=== PATIENT | male | born 1955 | race Caucasian/White ===

== ENCOUNTER 2019-01-06 07:03 | Day surgery (SDC) | payer OTHER ==
[~2019-01-06] VITALS: Ht 175.3 cm; Wt 86.5 kg
[~2019-01-06 07:03] MED LIST: SODIUM CHLORIDE 0.9% 1,000 ML IV ONE
[2019-01-06] MEDS ORDERED: BENZOCAINE 20% 50 MCG/SPRAY 57 GM TP ONE (07:04)
[2019-01-06] MEDS ORDERED: ALBUTEROL SULFATE 2.5 MG/0.5 ML NEB SOLUTION NEB ONE (07:04)
[2019-01-06] MEDS ORDERED: LIDOCAINE 2% 30 ML JELLY TP ONE (07:04)
[2019-01-06 07:54] LABS: GLUCOMETER DEV NAME(LOC) SDS.; GLUCOSE,POINT OF CARE 187 MG/DL (70-110)
[2019-01-06] MEDS ORDERED: FentaNYL CITRATE-PF 100 MCG/2 ML VIAL ONE (08:04)
[2019-01-06] MEDS ORDERED: MIDAZOLAM HCL 2 MG/2 ML VIAL ONE (08:04)
[2019-01-06] MEDS ORDERED: HYDR25TA PO (08:25)
[2019-01-06] MEDS ORDERED: FLUO15CR2 TP (08:25)
[2019-01-06] MEDS ORDERED: AMIT25TA9 PO (08:25)
[2019-01-06] MEDS ORDERED: SITA100 PO (08:25)
[2019-01-06] MEDS ORDERED: METF-960 PO (08:25)
[2019-01-06] MEDS ORDERED: GLIP10 PO (08:25)
[2019-01-06] MEDS ORDERED: DICL100G16 TP (08:25)
[2019-01-06] MEDS ORDERED: HYDR-4455 PO (08:25)
[2019-01-06] MEDS ORDERED: FLUT16H NASAL (08:25)
[2019-01-06] MEDS ORDERED: CLOP75TA3 PO (08:25)
[2019-01-06] MEDS ORDERED: FERR-89 PO (08:25)
[2019-01-06] MEDS ORDERED: GABA-533 PO (08:25)
[2019-01-06] MEDS ORDERED: SERT100T12 PO (08:25)
[2019-01-06] MEDS ORDERED: PRED10 PO (08:25)
[2019-01-06] MEDS ORDERED: FAMO20 PO (08:25)
[2019-01-06] MEDS ORDERED: BUDE10.22 IH (08:25)
[2019-01-06] MEDS ORDERED: ALBU8HFA PO (08:25)
[2019-01-06] MEDS ORDERED: LISI-662 PO (08:25)
[2019-01-06] MEDS ORDERED: TRAZ-220 PO (08:25)
[2019-01-06] MEDS ORDERED: DICY10 PO (08:25)
[2019-01-06] MEDS ORDERED: MONT10TA21 PO (08:25)
[2019-01-06] MEDS ORDERED: ATOR20TA86 PO (08:25)
[2019-01-06] MEDS ORDERED: MethylPREDNISolone SOD SUCC 125 MG/2 ML VIAL IVP ONE (09:15)
[2019-01-06] MEDS ORDERED: OXYGEN THERAPY IH SCH (20:00)
== END 2019-01-06 10:45 | disposition home or self-care (01) ==
LOC: SURGERY 07:03
PROVIDERS: ATTEND Internal Medicine Critical Care Medicine
DX: B37.0 Candidal stomatitis (principal); J38.4 Edema of larynx; I25.10 Atherosclerotic heart disease of native coronary artery without angina pectoris; G47.33 Obstructive sleep apnea (adult) (pediatric); Z87.891 Personal history of nicotine dependence; Z98.890 Other specified postprocedural states
CPT/HCPCS: 31623; 31624; 71045; 82962; 87015; 87070; 87101; 87206; 87220; 88108; 88312; J2250; J2930; J3010; J7030

== ENCOUNTER 2020-06-18 06:31 | Day surgery (SDC) | payer OTHER ==
[2020-06-17 15:21] LABS: COVID AG,FIA SOURCE NASOPHARYNGEAL
[~2020-06-18] VITALS: Ht 177.8 cm; Wt 87.3 kg
[~2020-06-18 06:31] MED LIST changes: +ALBU8HFA PO; +AMIT25TA9 PO; +ATOR20TA86 PO; +BUDE10.22 IH; +CLOP-31 PO; +DICL100G16 TP; +DICY10 PO; +FAMO20 PO; +FERR-89 PO; +FLUO15CR2 TP; +FLUT16H NASAL; +GABA-1201 PO; +GLIP10 PO; +HYDR-1475 PO; +HYDR-4455 PO; +LISI-662 PO; +METF-960 PO; +MONT-35 PO; +PRED10 PO; +SERT100T12 PO; +SITA100 PO; -SODIUM CHLORIDE 0.9% 1,000 ML IV ONE; +SODIUM CHLORIDE 0.9% 1,000 ML ONE; +TRAZ-257 PO
[2020-06-18] MEDS ORDERED: LIDOCAINE 4% 50 ML SOLUTION TP ONE (06:32)
[2020-06-18] MEDS ORDERED: LIDOCAINE 2% 30 ML JELLY TP ONE (06:32)
[2020-06-18] MEDS ORDERED: ALBUTEROL SULFATE 2.5 MG/0.5 ML NEB SOLUTION NEB ONE (06:32)
[2020-06-18] MEDS ORDERED: BENZOCAINE 20% 50 MCG/SPRAY 57 GM TP ONE (06:32)
[2020-06-18] MEDS ORDERED: SODIUM CHLORIDE 0.9% 1,000 ML IV ONE (07:00)
[2020-06-18 07:46] LABS: GLUCOMETER DEV NAME(LOC) SDS.; GLUCOSE,POINT OF CARE 145 MG/DL (70-110)
[2020-06-18] MEDS ORDERED: MIDAZOLAM HCL 2 MG/2 ML VIAL ONE (08:25)
[2020-06-18] MEDS ORDERED: FentaNYL CITRATE-PF 100 MCG/2 ML VIAL ONE (08:25)
[2020-06-18] MEDS ORDERED: MethylPREDNISolone SOD SUCC 125 MG/2 ML VIAL IVP ONE (09:15)
[2020-06-18] MEDS ORDERED: MethylPREDNISolone SOD SUCC 125 MG/2 ML VIAL ONE (09:25)
[2020-06-18] MEDS ORDERED: OXYGEN THERAPY IH SCH (20:00)
== END 2020-06-18 10:35 | disposition home or self-care (01) ==
LOC: SURGERY 06:31
PROVIDERS: ATTEND Internal Medicine Critical Care Medicine
DX: J38.4 Edema of larynx (principal); B37.0 Candidal stomatitis; Z87.891 Personal history of nicotine dependence; Z98.890 Other specified postprocedural states; I25.2 Old myocardial infarction; Z86.19 Personal history of other infectious and parasitic diseases; Z86.73 Personal history of transient ischemic attack (TIA), and cerebral infarction without residual deficits; E78.00 Pure hypercholesterolemia, unspecified
CPT/HCPCS: 31623; 31624; 71045; 82962; 87015; 87070 ×2; 87101; 87205; 87206; 87220; 87252 ×2; 87426; 88108; 88184; 88185; 88312; J2250; J2930; J3010; J7030; J7613; Z7610